=== PATIENT | male | born 1960 | race Caucasian/White ===

== ENCOUNTER → 2021-05-22 | Outpatient (CLI) | payer OTHER | LOC: KOH-I 15:03 | DX: M19.011 Primary osteoarthritis, right shoulder (principal); M24.011 Loose body in right shoulder | CPT/HCPCS: 73200 ==

== ENCOUNTER → 2021-08-14 | Outpatient (CLI) | payer OTHER ==
[~2021-08-14] MED LIST: ALEVE220 MG PO; JARDIANCE25 MG PO; LISINOPRIL20 MG PO; METFORMIN HCL500 M2 PO; TRULICITY4.5 MG/0.5 SQ; VITAMIN D 40400 UNIT PO
[2021-08-14 08:45] LABS: HEMOGLOBIN 14.3 gm/dl (14.0-17.5); RED BLOOD COUNT 5.05 M/UL (4.20-5.50); WHITE BLOOD COUNT 5.7 K/UL (4.5-11.0)
[2021-08-14 09:12] LABS: BUN/CREATININE RATIO 17 (0-10)
== END ==
LOC: OPSV2 07:55 → EDSTATUS 08:00 → OPSV2 08:00
PROVIDERS: Orthopaedic Surgery
DX: Z01.818 Encounter for other preprocedural examination (principal); M19.011 Primary osteoarthritis, right shoulder; R94.31 Abnormal electrocardiogram [ECG] [EKG]; I25.2 Old myocardial infarction
CPT/HCPCS: 36415; 71046; 80048; 83036; 85027; 93005

== ENCOUNTER → 2022-01-29 | Outpatient (CLI) | payer OTHER ==
[~2022-01-29] MED LIST changes: +FISH OIL
[2022-01-29 11:05] LABS: HEMOGLOBIN 14.4 gm/dl (14.0-17.5); RED BLOOD COUNT 5.17 M/UL (4.20-5.50); WHITE BLOOD COUNT 6.8 K/UL (4.5-11.0)
[2022-01-29 11:26] LABS: BUN/CREATININE RATIO 25 (0-10)
[2022-02-02 09:14] LABS: HEMOGLOBIN A1C 8.3 % (4.8-5.6)
== END ==
LOC: OPSV2 09:52 → EDSTATUS 10:00
PROVIDERS: Orthopaedic Surgery
DX: Z01.818 Encounter for other preprocedural examination (principal); M19.011 Primary osteoarthritis, right shoulder; I25.2 Old myocardial infarction; R94.31 Abnormal electrocardiogram [ECG] [EKG]
CPT/HCPCS: 36415; 80048; 83036; 85025; 93005